=== PATIENT | female | born 1945 | race Caucasian/White ===

== ENCOUNTER 2017-03-23 09:41 | Outpatient (CLI) | payer MEDICARE ==
--- NOTE | ~2017-03-23 | HEMODYNAMI ---
PATIENT:BELLE SANCHEZ MEDICAL RECORD: [id number] : 47 LOCATION:[facility] ADMISSION DATE: 03/23/17 Generatedon:03/23/201713:55 Patient name: BELLE SANCHEZ Patient #: [id number] SSN: : 1945 Date of study: 03/23/2017 Page: Of Hemodynamic Procedure Report Patient Data Patient Demographics Procedure consent was obtained First Name: BELLE Gender: Female Last Name: DANIEL : 1945 Patient #: [id number] Age: 71 year(s) Race: Unknown Additional ID: [id number] Contact details [address]: [address] [place] [address] State: [place] City: [place] Zip code: [address] Past Medical History Allergies Allergen Reaction Date Comments Reported Codeine 03/23/2017 Admission Admission Data Admission Date: 03/23/2017 Admission Time: 9:41 Lab Results Lab Result Date: 03/23/2017 Lab Result Time: 0:00 Biochemistry Name Units Result Min Max BUN mg/dl 16 --(---*)-- 7 18 Creatinine mg/dl 1 --(--*-)-- 0.6 1.3 CBC Name Units Result Min Max Hemoglobin g/dl 12.4 *-(----)-- 13.5 17.5 Procedure Procedure Types Cath Procedure Diagnostic Procedure [facility] w/Coronaries PCI Procedure Coronary Stent Initial Procedure Description Procedure Date Procedure Date: 03/23/2017 Procedure Start Time: 13:40 Procedure End Time: 13:54 Procedure Staff Name Function Cirilo Flores MD Performing Physician Gem Gillis RT Scrub Joey Lamb RT Monitor Irene Au RN Nurse Procedure Data Cath Procedure Fluoroscopy Diagnostic fluoroscopy Total fluoroscopy Time: 1.9 time: 1.9 min min Diagnostic fluoroscopy Total fluoroscopy dose: 360 dose: 360 mGy mGy Contrast Material Contrast Material Type Amount (ml) Isovue 300 57 Entry Location Entry Primary Successful Side Size Upsize Upsize Entry Closure [place]oa ccessful Closure Location (Fr) 1 (Fr) 2 (Fr) Remarks Device Remarks Radial Right 6 Fr Mechanical artery Short Compression Estimated blood loss: 10 ml Diagnostic catheters Device Type Used For End Catheter Placement Diagnostic Terumo 5Fr Procedure Atwood 110cm catheter Procedure Medications Medication Administration Route Dosage Oxygen NC 2 l/min Lidocaine 2% added to field 20 Heparin Flush Bag added to field 2 bags (1000units/500ml NS) 0.9% NaCl I.V. 100 ml/hr Zofran I.V. 4 mg Versed I.V. 1 mg Fentanyl I.V. 50 mcg Radial Cocktail I.A. 1 syringe (Verapomil 2mg/Nitro 400mcg/Heparin 1500units) Versed I.V. 1 mg Fentanyl I.V. 50 mcg Heparin Bolus I.V. 4000 units Integrilin (Bolus I.V. 7.3 ml 2mg/ml) Plavix P.O. 600 mg Hemodynamics Rest HGB: 12.4 (g/dl) Heart Rate: 71 (bpm) Pressure Samples Time Site Value (mmHg) Purpose Heart Use Rate(bpm) 13:44 LV 134/8,12 Snapshot 99 Snapshots Pre Cath Intra NCS Post Cath Vital Signs Time Heart Resp SPO2 NIBP (mmHg) Rhythm Pain Sedation Rate (ipm) (%) Status Level (bpm) 13:17:45 87 15 99 167/90(130) NSR 0 (11) 10(A) , No pain 13:22:54 71 16 100 170/90(130) NSR 0 (11) 10(A) , No pain 13:28:03 72 16 100 152/101(137) NSR 0 (11) 10(A) , No pain 13:32:22 78 15 100 157/98(136) NSR 0 (11) 10(A) , No pain 13:36:44 78 13 100 160/95(141) NSR 0 (11) 10(A) , No pain 13:41:47 76 16 99 162/89(131) NSR 0 (11) 10(A) , No pain 13:45:53 106 15 95 127/90(110) NSR 0 (11) 9(A) , No pain 13:50:03 101 16 94 136/94(113) NSR 0 (11) 10(A) , No pain 13:54:16 96 18 96 146/81(125) NSR 0 (11) 10(A) , No pain Medications Time Medication Route Dose Verified Delivered Reason Not es Effectiveness by by 13:36:52 Oxygen NC 2 l/min Cirilo Kerr used for Sandra Flores MD procedure 13:36:59 Lidocaine 2% added 20ml Cirilo Kerr for local to vial Sandra Flores MD anesthetic field 13:37:06 Heparin Flush added 2 bags Cirilo Kerr used for Bag to Sandra Flores MD procedure (1000units/500ml field NS) 13:37:15 0.9% NaCl I.V. 100ml/hr Cirilo Kerr Per physician Sandra Flores MD 13:37:23 Zofran I.V. 4 mg Cirilo Kerr Per physician Sandra Flores MD 13:42:06 Versed I.V. 1 mg Cirilo Kerr for sedation Sandra Flores MD 13:42:12 Fentanyl I.V. 50 mcg Cirilo Kerr for sedation Sandra Flores MD 13:44:17 Radial Cocktail I.A. 1 Cirilo Kerr for (Verapomil syringe Sandra Flores MD vasodilation 2mg/Nitro 400mcg/Heparin 1500units) 13:44:25 Versed I.V. 1 mg Cirilo Bonilla for sedation Sandra Au RN 13:44:30 Fentanyl I.V. 50 mcg Cirilo Bonilla for sedation Sandra Au RN 13:46:37 Heparin Bolus I.V. 4000 Cirilo Bonilla for eli ified units Sandra Au RN anticoagulation with dr flores 13:48:07 Integrilin I.V. 7.3 ml Cirilo Bonilla for was jaclyn (Bolus 2mg/ml) Sandra Au RN antiplatelet 2.7 ml therapy of vial 13:53:07 Plavix P.O. 600 mg Cirilo Bonilla for Sandra Au RN antiplatelet therapy Procedure Log Time Note 12:53:34 Gem Counts RT(R) sent for patient. Start room use. 12:53:35 Time tracking: Regular hours 12:53:40 Plan of Care:Hemodynamics will remain stable., Cardiac rhythm will remain stable., Comfort level will be maintained., Respiratory function will remain adequate., Patient/ family verbilizes understanding of procedure., Procedure tolerated without complication., Recovers from procedure without complications.. 13:16:30 Patient received from ED to CCL 2 Alert and oriented. Tansferred to table in Supine position. 13:16:31 Warm blankets applied, and bruna hugger turned on for patient comfort. 13:16:31 Correct patient and procedure confirmed by team. 13:16:32 Signed procedure consent form obtained from patient. 13:16:33 ECG and BP/O2 sat monitors applied to patient. 13:16:34 Vital chart was started 13:16:35 Full Disclosure recording started 13:22:39 Baseline sample Acquired. 13:22:41 Rhythm: sinus rhythm 13:22:46 H&P Date Dictated: 03/23/2017 ER History on chart.. 13:22:47 Pre-procedure instructions explained to patient. 13:22:48 Pre-op teaching completed and patient verbalized understanding. 13:22:49 Family in waiting room. 13:22:50 Patient NPO since Midnight. 13:23:00 Patient allergic to Codeine 13:23:02 Is the patient allergic to Iodine/contrast media? No. 13:23:03 Is patient on blood thinner?No 13:23:17 Previous problem with sedation/anesthesia? No ? 13:23:19 Snore? Yes 13:23:19 Sleep apnea? No 13:23:20 Deviated septum? No 13:23:21 Opens mouth fully? Yes 13:23:23 Sticks out tongue? Yes 13:23:30 Airway obstruction? No ? 13:23:31 Dentures? No ? 13:23:34 Pre procedure: right dorsailis pedis pulse 2+ Normal; easily identifiable; not easily obliterated 13:23:36 Modified Melvin's test Radial < 7 seconds 13:23:37 Patient pain scale 0/10 ?. 13:23:42 IV patent on arrival in left hand with 0.9% NaCl at [facility]. 13:23:45 Lab results completed and on chart. 13:23:48 Right Radial & Right Groin area was prepped with chlora-prep and draped in sterile fashion 13:28:04 Use device set Radial Dx 13:28:05 Acist Syringe opened to sterile field. 13:28:06 Medline Cath Pack opened to sterile field. 13:28:07 Bag Decanter opened to sterile field. 13:28:08 Terumo 6Fr Slender Glidesheath opened to sterile field. 13:28:09 St Niko 260cm J .035 wire opened to sterile field. 13:28:09 Acist Hand Control opened to sterile field. 13:28:10 Acist Manifold opened to sterile field. 13:28:10 Tegaderm 4 x 4 opened to sterile field. 13:28:11 MBrace Wrist Support opened to sterile field. 13:28:34 Patient diabetic? No. 13:28:39 Patient not . Patient is over age 55. 13:34:58 Lab Result : Creatinine 1 mg/dl 13:34:58 Lab Result : BUN 16 mg/dl 13:34:58 Lab Result : Hemoglobin 12.4 g/dl 13:36:52 Oxygen 2 l/min NC was administered by Cirilo Flores MD; used for procedure; 13:36:59 Lidocaine 2% 20ml vial added to field was administered by Cirilo Flores MD; for local anesthetic; 13:37:06 Heparin Flush Bag (1000units/500ml NS) 2 bags added to field was administered by Cirilo Flores MD; used for procedure; 13:37:15 0.9% NaCl 100ml/hr I.V. was administered by Cirilo Flores MD; Per physician; 13:37:23 Zofran 4 mg I.V. was administered by Cirilo Flores MD; Per physician; 13:37:58 Alarms reviewed by R. N. 13:37:58 Sharps counted by scrub and verified by R.N. 13:38:30 Physician arrived 13:38:30 --------ALL STOP TIME OUT------ 13:38:31 Final Timeout: patient, procedure, and site verified with staff and physician. All members of the team are in agreement. 13:38:38 Right Radial & Right Groin site verified by team. 13:38:47 Physical assessment completed. ASA score P 2 - A patient with mild systemic disease as per Cirilo Flores MD. 13:38:51 Sedation plan: IV Moderate Sedation Versed, Fentanyl 13:40:29 Procedure started. 13:40:39 Local anesthetic to right radial artery with Lidocaine 2% by Cirilo Flores MD.INITIAL ACCESS ONLY 13:40:54 Zero performed for pressure channel P1 13:41:49 A 6 Fr Short sheath was inserted into the Right Radial artery 13:42:06 Versed 1 mg I.V. was administered by Cirilo Flores MD; for sedation; 13:42:12 Fentanyl 50 mcg I.V. was administered by Cirilo Flores MD; for sedation; 13:42:51 A Diagnostic Terumo 5Fr Atwood 110cm catheter was advanced over the wire and used for Procedure. 13:44:14 LV hemodynamics recorded. 13:44:16 LV gram done using ARVIZU 13:44:17 Radial Cocktail (Verapomil 2mg/Nitro 400mcg/Heparin 1500units) 1 syringe I.A. was administered by Cirilo Flores MD; for vasodilation; 13:44:25 Versed 1 mg I.V. was administered by Irene Au RN; for sedation; 13:44:28 EF : 50 % 13:44:30 Fentanyl 50 mcg I.V. was administered by Irene Au RN; for sedation; 13:44:35 LCA angiography performed. 13:45:02 RCA angiography performed. 13:45:15 Catheter removed. 13:45:17 Proceeding to intervention. 13:45:40 Wordeo BasixCompak Inflation Kit opened to sterile field. 13:45:41 Arcos Whisper J 300cm 0.014 guide wire opened to sterile field. 13:46:37 Heparin Bolus 4000 units I.V. was administered by Irene Au RN; for anticoagulation; verified with dr flores 13:46:47 Cordis 6FR XBLAD 3.5 guide catheter opened to sterile field. 13:47:03 6 Fr xblad 3.5 guide catheter was inserted over the wire 13:47:36 whisper wire advanced. 13:47:48 Wire advanced across lesion. 13:48:07 Integrilin (Bolus 2mg/ml) 7.3 ml I.V. was administered by Irene Au RN; for antiplatelet therapy; wasted 2.7 ml of vial 13:48:17 Inflation Number: 1 A Medtronic Integrity 3.5 X 12 stent was prepped and advanced across the Undefined1. The stent was deployed at 13 QUEENIE for 0:10 (min:sec). 13:48:29 Stent catheter was removed intact over wire. 13:48:30 Wire removed. 13:48:30 Guide catheter removed. 13:48:51 Terumo TR Band Standard opened to sterile field. 13:49:04 Sheath removed intact; hemostasis achieved with Mechanical Compression to the Right Radial artery. 13:49:07 Procedure ended.(Physican Out) 13:51:16 Fluoroscopy time 01.90 minutes. 13:51:23 Fluoroscopy dose: 360 mGy 13:51:23 Flurop Dose total: 360 13:51:31 Contrast amount:Isovue 300 57ml. 13:51:33 Sharps counted by scrub and verified by R.N. 13:51:40 TR band inflated with 10cc of air. 13:51:41 Insertion/operative site no bleeding no hematoma. 13:51:46 Post right radial artery:stable 13:51:50 Post Procedure Pulses reassessed and unchanged 13:51:53 Post-procedure physical assessment completed. ASA score P 2 - A patient with mild systemic disease as per Cirilo Flores MD. 13:52:13 Procedure type changed to Cath procedure, Diagnostic procedure, LHC, LHC w/Coronaries, PCI procedure, Coronary Stent Initial 13:53:07 Plavix 600 mg P.O. was administered by Irene Au RN; for antiplatelet therapy; 13:54:19 Post procedure rhythm: sinus rhythm 13:54:23 Estimated blood loss: 10 ml 13:54:24 Post procedure instruction explained to patient.Patient verbalizes understanding. 13:54:25 Patient needs reinforcement of post procedure teaching. 13:54:33 Procedure and supply charges have been captured, reviewed, submitted and are correct. 13:54:36 Vital chart was stopped 13:54:37 See physician's report for complete and final results. 13:54:42 Report given to Pre/Post Procedure Room. 13:54:50 Patient transfered to Pre/Post Procedure Room with Stretcher. 13:54:53 Procedure ended. 13:54:53 Full Disclosure recording stopped 13:54:57 End room use (Document Last) Intervention Summary Intervention Notes Time ActionType Lesion and Equipment Action# Pressure Duration Attributes Used 13:48:17 Place stent Undefined1 Medtronic 1 13 00:10 Integrity 3.5 X 12 stent Device Usage Item Name Manufacture Quantity Catalog Hospital Part Current Minimal Lot# / Number Charge Number Stock Stock Serial# Code Acist Acist 1 69468 609429 006043 [id number] 20 [employer] Medline Cardinal 1 [id number] 585529 51531 555175 5 Cath Pack Health Bag Microtek 1 2002S 155259 24022 518539 5 DecCopiun Medical Inc. Terumo 6Fr Terumo 1 [id number] 949989 452467 452511 [address] Niko St Niko 1 433270 316377 426276 620462 30 260cm J .035 wire Acist Hand Acist 1 28151 010730 226138 790556 5 Control Medical Systems Inc Acist Acist 1 16616 578862 215152 331350 5 Manifold Medical Systems Inc Tegaderm 4 3M 1 1626W 289750 695967 676585 5 x 4 MBrace Advanced 1 140-0250-00 466052 45968 224383 5 Wrist Vascular Support Dynamics Diagnostic Terumo 1 04-2984 096112 120326 700495 5 Terumo 5Fr Atwood 110cm catheter Merit Merit 1 [id number] 799269 803967 048743 15 BasixCompak Medical Inflation Kit Arcos Arcos 1 [id number] 414362 906270 643114 5 Whisper J Vascular 300cm 0.014 guide wire Cordis 6FR Cardinal 1 [id number] 150838 428997 649627 10 XBLAD 3.5 Health guide catheter Medtronic Medtronic 1 [id number] 832660 192160 2 [id number] Integrity 3.5 X 12 stent Terumo TR Terumo 1 [id number] 830423 428598 254333 40 Band Standard Signature Audit [place] Stage Time Signature Unsigned Intra-Procedure 03/23/2017 Joey Lamb 1:55:31 PM RT(R) (CV) Signatures Monitor : Joey Lamb RT Signature : Date : Time : [facility] [address] [facility] [place] [address]
[2017-03-23 10:07] LABS: BASOPHILS 0.6 % (0-2); EOSINOPHILS 1.4 % (0-7); HEMATOCRIT 38.1 % (36.0-48.0); HEMOGLOBIN 12.4 g/dL (12-16); IMMATURE GRANULOCYTES 0.4 % (0-5); LYMPHOCYTES 21.3 % (15-50); MCH 28.5 pg (26.0-34.0); MCHC 32.5 g/dL (31.0-37.0); MCV 87.6 fL (80.0-100.0); MEAN PLATELET VOLUME 11.1 fL (7.4-10.4); MONOCYTES 10.2 % (2-11); NEUTROPHILS 66.1 % (40-80); PLATELET COUNT 289 10x3/uL (130-400); RBC 4.35 10x6/uL (4.00-5.40); RDW 14.2 % (11.5-14.5)
[2017-03-23 10:31] LABS: ALBUMIN 3.4 g/dL (3.4-5.0); ALKALINE PHOSPHATASE 110 U/L (46-116); ALT (SGPT) 25 U/L (10-68); BILIRUBIN - TOTAL 0.59 mg/dL (0.2-1.3); CALC OSMOLALITY 273 mosm/kg (275-300); CALCIUM 9.5 mg/dL (8.5-10.1); CARBON DIOXIDE 27.5 mmol/L (21.0-32.0); CHLORIDE - SERUM 102 mmol/L (98-107); GLUCOSE 80 mg/dL (74-106); POTASSIUM - SERUM 4.5 mmol/L (3.5-5.1); PROTEIN - SERUM 7.9 g/dL (6.4-8.2); SODIUM 137 mmol/L (136-145); UREA NITROGEN 16 mg/dL (7-18); eGFR NON AFRICAN AMERICAN 58 mL/min (90-120)
[2017-03-23 10:42] LABS: CHOL - HDL RATIO 2.8 ratio (2.3-4.1); CHOLESTEROL, TOTAL 201 mg/dL (0-200); CKMB 0.4 U/L (0.0-3.6); CREATINE KINASE 171 UL (21-215); HDL CHOLESTEROL 72 mg/dL (32-96); LDL CHOLESTEROL 113 mg/dL (0-100); LDL-HDL RATIO 1.6 ratio (1.5-3.5); TRIGLYCERIDE 84 mg/dL (30-200)
[2017-03-23 10:46] LABS: TROPONIN-I < 0.017 ng/mL (0.000-0.060)
--- NOTE | 2017-03-23 14:09 | NUR ---
RECIEVED TO ROOM VIA STRETCHER FROM GINNER HELPER WITH TR BAND TO R/WRIST CDI NO BLEEDING NO HEMATOMA NOTED. REPORTS OF ONE STENT TO THE LAD VSS WITH CHEST PAIN DENIED FAMILY AT SIDE
[2017-03-23] MEDS ORDERED: LISINOPRIL10 MG PO (14:15)
[2017-03-23] MEDS ORDERED: PAMELOR 25 MG C25 MG PO (14:16)
[2017-03-23] MEDS ORDERED: ZANAFLEX4 MG PO (14:17)
[2017-03-23] MEDS ORDERED: BUTRANS1 EAC1 TRANSDERM (14:18)
[2017-03-23] MEDS ORDERED: ULTRAM50 MG PO (14:18)
[2017-03-23] MEDS ORDERED: PLAVIX75 MG PO (14:21)
[2017-03-23] MEDS ORDERED: BAYER CHEWABLE81 MG PO (14:21)
--- NOTE | 2017-03-23 14:45 | NUR ---
PATIENT COMPLAINS OF A HEADACH DR CHANCE NOTIFIED WITH ORDERS FOR DEMEROL 50 X 1 MEDICATION ORDERED AND GIVEN DIRECTED. PATIENT SITTING WITH HOB UP 45 DEGREES EATING SANDWICH AND SODA FAMILY AT SIDE
--- NOTE | 2017-03-23 15:19 | NUR ---
VSS WITH CHEST PAIN DENIED TR BAND REMAINS INTACT TO R/WRIST CDI
--- NOTE | 2017-03-23 15:54 | NUR ---
TR BAND REMAINS CDI NO BLEEDING NO HEMATOMA NOTED. CHEST PAIN IS DENIED. FAMILY AT BEDSIDE
--- NOTE | 2017-03-23 16:44 | NUR ---
NO DISTRESS NOTED VSS WITH PATIENT SITTING HOB UP 30 DEGREES. CHEST PAIN IS DENIED. TR BAND REMAINS TO R/WRIST CDI NO BLEEDING NO HEMATOMA NOTED.
--- NOTE | 2017-03-23 17:00 | NUR ---
1700 4 CC AIR REMOVED FROM TR BAND WITH NO BLEEDING NO HEMATOMA NOTED. VERBAL AND WRITTEN DISCHARGE GONE OVER WITH PATIENT AND BOTH VERBALIZED UNDERSTANDING.
--- NOTE | 2017-03-23 17:15 | NUR ---
3 CC AIR REMOVED FROM TR BAND NO BLEEDING NOTED
--- NOTE | 2017-03-23 17:20 | NUR ---
4 CC AIR REMOVED FROM TR BAND WITH NO BLEEDING NOTED. PIV REMOVED WITH DRESSING APPLIED. PATIENT DENIED CHEST PAIN UP TO GET DRESSED FOR DISCHARGE HOME
--- NOTE | 2017-03-23 17:30 | NUR ---
REMAINING AIR REMOVED FROM TR BAND, DRESSING TO SITE. DISCHARGE INSTRUCTIONS GIVEN, VERBALIZED UNDERSTANDING.
--- NOTE | 2017-03-23 17:40 | NUR ---
TAKEN OUT VIA WHEELCHAIR BY CATH HIP HOP ARTIST. LEFT FACILITY WITH FAMILY MEMBER AND ALL PERSONAL BELONGINGS.
--- NOTE | 2017-04-06 16:56 | OP ---
PATIENT NAME: BELLE SANCHEZ MEDICAL RECORD: [id number] :47 LOCATION:D.CAT ADMISSION DATE: SURGEON: SHAYY CHANCE MD DATE OF OPERATION: 03/23/2017 PROCEDURES: 1. PTCA stent to LAD. 2. Left heart catheterization. 3. Selective coronary angiography. 4. Left ventriculogram. INDICATION: Chest pain compatible with angina. PROCEDURE IN DETAIL: After informed consent was obtained and after detailed explanation of risks, benefits as well as alternative therapies, the patient elected to proceed with angiogram and angioplasty. The right radial area was prepped and draped in normal sterile fashion. The right radial artery was cannulated via modified Seldinger technique with placement of 6-Andorran sheath. All catheters exchanged through this sheath. FINDINGS: The left ventriculogram was performed in standard 30-degree ARVIZU view, reveals good cardiac wall motion throughout all segments. Overall ejection fraction 50%. SELECTIVE CORONARY ANGIOGRAPHY: 1. Left main is with no significant angiographic disease. 2. Left anterior descending has a 75% stenosis in the mid vessel. 3. Left circumflex has moderate irregularities, but no flow-limiting stenosis. 4. Right coronary has moderate irregularities, but no flow-limiting stenosis. PTCA STENT OF THE LAD: The stent used is a 3.5 x 12 mm Integrity. Result was 0% residual stenosis. OVERALL IMPRESSION: Successful percutaneous transluminal coronary angioplasty stent of the left anterior descending going from 75% initial stenosis to 0% residual stenosis. TRANSINT:[id number] Voice Confirmation ID: [id number] DOCUMENT ID: [id number] SHAYY CHANCE MD at 1656 CC: [id number] DICTATION DATE: 03/23/17 1401 BOARD HAMMER OPERATOR: 03/23/17 1500 DEP CLI 03/23/17 [place] [id number]
--- NOTE | 2017-04-06 16:56 | CN ---
PATIENT NAME:BELLE MONTES DE OCA MEDICAL RECORD: [id number] : 47 LOCATION:D.CAT ADMIT DATE: ACCOUNT: [id number] CONSULTING PHYSICIAN: SHAYY CHANCE MD REFERRING PHYSICIAN: SHAYY CHANCE MD DATE OF CONSULTATION: 03/23/2017 ADMITTING DIAGNOSIS: Unstable angina. HISTORY OF PRESENT ILLNESS: Mrs. Montes De Oca was seen in our office with increasing episodes of chest pain, chest discomfort set for nuclear stress testing. She has continued to have episodes of classic anginal chest discomfort with radiation to her jaw and neck. She now presents to the Emergency Room. She is pain free after sublingual nitros. Troponin is normal, but she continues to have the episodes of classic anginal chest pain. PHYSICAL EXAMINATION: GENERAL APPEARANCE: Well-nourished, well-developed, appears stated age. Level of distress, comfortable. PSYCHIATRIC: Mental status, alert, normal affect. Orientation, oriented to time, place and person. EYES: Lids and conjunctiva, noninjected. No discharge, no pallor. ENT: Lips, teeth, gums, normal dentition. Oropharynx, no cyanosis, no pallor. NECK: Carotid arteries, bilateral normal upstroke, no bruits, no thrills. JUGULAR VEINS: No jugular venous pressure or distention. CERVICAL LYMPH NODES: Nontender, nonenlarged. THYROID: Not enlarged. Nontender. No nodules. LUNGS: Respiratory effort, unlabored. CHEST: Normal curvature. No thoracic deformity. No chest wall tenderness. Percussion, resonant. Auscultation, clear. No wheezes, no rales, no rhonchi. CARDIOVASCULAR: Precordial exam, nondisplaced. No heaves or pericardial thrills. Rate and rhythm, regular. Heart sounds, normal S1, normal S2. No S3, no gallop, no rub. Systolic murmur, not heard. Diastolic murmur, not heard. EXTREMITIES: No cyanosis, no edema. Peripheral pulses, full and equal in all extremities, except as noted. No bruits appreciated. ABDOMEN: Soft, nondistended. Normal aorta. No bruit. Nontender. No masses. Liver, nontender, no hepatomegaly. Spleen, nontender, no splenomegaly. MUSCULOSKELETAL: No joint tenderness. No joint swelling. No erythema. NEUROLOGICAL: Normal gait, normal strength, normal tone. SKIN: Warm and dry. REVIEW OF SYSTEMS: The patient reports easy bruising but reports no swollen glands. The patient reports no fever, no night sweats, no significant weight gain, no significant weight loss. No significant exercise tolerance. The patient reports no dry eyes, no irritation, no vision change. Patient reports no difficulty hearing and no ear pain. Patient reports no frequent nose bleeds or nose and sinus problems. Patient reports on arm pain on exertion. No shortness of breath while lying down. No history of heart murmur. Patient reports no cough, no wheezing or coughing up blood. Patient reports no abdominal pain, no vomiting. Normal appetite. No diarrhea and not vomiting blood. No nausea and no constipation. Patient reports no incontinence. No difficulty urinating. No hematuria. No increased frequency. Patient reports no muscle aches. No weakness, no arthralgias, no back pain. No swelling of the extremities. Patient reports no abnormal mole, no jaundice, no rashes. Reports no loss of consciousness. No weakness and no numbness. No seizures, dizziness, CONSULT REPORT [id number] MONTES DE OCA,BELLE or headaches. The patient reports no depression, no sleep disturbance, feeling safe in a relationship and no alcohol abuse. Patient reports on fatigue. Reports no runny nose or sinus pressure. No itching, no hives, and no frequent sneezing. OVERALL IMPRESSION: Increasing episodes of chest pain compatible with angina. We will proceed with coronary angiography. Further care depends upon findings of the angiography. TRANSINT:[id number] Voice Confirmation ID: [id number] DOCUMENT ID: [id number] SHAYY CHANCE MD at 1656 CC: [id number] DICTATION DATE: 03/23/17 1400 BOBBIN DUMPER: 03/23/17 1458 DEP CLI 03/23/17 [place] [id number] [place] [id number]
== END 2017-03-23 17:40 | disposition home or self-care (01) ==
LOC: D.CATH 09:41 → D.ER 09:41 → EDSTATUS 11:12 → D.CATH 17:40
PROVIDERS: Emergency Medicine
DX: I20.0 Unstable angina (principal); R07.9 Chest pain, unspecified; R68.84 Jaw pain; Z01.812 Encounter for preprocedural laboratory examination

== ENCOUNTER → 2018-03-25 17:33 | Outpatient (CLI) | payer MEDICARE ==
[~2018-03-25 17:33] MED LIST: BAYER CHEWABLE81 MG PO; BUTRANS1 EAC1 TRANSDERM; LISINOPRIL10 MG PO; PAMELOR 25 MG C25 MG PO; PLAVIX75 MG PO; ULTRAM50 MG PO; ZANAFLEX4 MG PO
== END | disposition home or self-care (01) ==
LOC: D.LABREF 17:33
DX: N39.0 Urinary tract infection, site not specified (principal)

== ENCOUNTER → 2018-04-22 16:16 | Outpatient (CLI) | payer MEDICARE | END | disposition home or self-care (01) | LOC: D.LABREF 16:16 | DX: D72.829 Elevated white blood cell count, unspecified (principal); R31.9 Hematuria, unspecified ==

== ENCOUNTER → 2018-06-17 17:17 | Outpatient (CLI) | payer MEDICARE | END | disposition home or self-care (01) | LOC: D.LABREF 17:17 | DX: D72.829 Elevated white blood cell count, unspecified (principal) ==

== ENCOUNTER → 2018-07-01 16:54 | Outpatient (CLI) | payer MEDICARE ==
[~2018-07-01 16:54] MED LIST changes: +NORCO 10-325 TA1 TAB PO; +ROBAXIN500 MG PO
== END | disposition home or self-care (01) ==
LOC: D.LABREF 16:54
DX: D72.829 Elevated white blood cell count, unspecified (principal)

== ENCOUNTER 2018-07-01 18:06 | Emergency (ER) | payer MEDICARE ==
[~2018-07-01] VITALS: Ht 172.7 cm; Wt 86.4 kg
[~2018-07-01 18:06] MED LIST changes: -NORCO 10-325 TA1 TAB PO; -ROBAXIN500 MG PO
[2018-07-01 18:17] VITALS: Ht 172.7 cm; Wt 86.4 kg
[2018-07-01] MEDS ORDERED: NORCO 10-325 TA1 TAB PO (20:33)
[2018-07-01] MEDS ORDERED: ROBAXIN500 MG PO (20:33)
[2018-07-01 20:44] VITALS: BP 027/75
== END 2018-07-01 20:45 | disposition home or self-care (01) ==
LOC: D.ER 18:06
DX: S20.211A Contusion of right front wall of thorax, initial encounter (principal); V43.52XA Car driver injured in collision with other type car in traffic accident, initial encounter; Y93.89 Activity, other specified; Y92.410 Unspecified street and highway as the place of occurrence of the external cause; S16.1XXA Strain of muscle, fascia and tendon at neck level, initial encounter

== ENCOUNTER → 2018-07-18 14:10 | Outpatient (CLI) | payer MEDICARE ==
[2018-07-01 18:17] VITALS: BMI 28.9
[~2018-07-18 14:10] MED LIST changes: +NORCO 10-325 TA1 TAB PO; +ROBAXIN500 MG PO
== END | disposition home or self-care (01) ==
LOC: D.CT 14:10
DX: S20.219D Contusion of unspecified front wall of thorax, subsequent encounter (principal); X58.XXXD Exposure to other specified factors, subsequent encounter

== ENCOUNTER → 2018-09-26 12:36 | Outpatient (CLI) | payer MEDICARE ==
[2018-07-01 18:17] VITALS: BMI 28.9
== END | disposition home or self-care (01) ==
LOC: D.RAD 12:36
DX: M54.5 Low back pain (principal)

== ENCOUNTER → 2018-10-15 08:59 | Outpatient (CLI) | payer MEDICARE ==
[2018-07-01 18:17] VITALS: BMI 28.9
--- NOTE | 2018-10-18 16:42 | ST ---
PATIENT:BELLE SANCHEZ MEDICAL RECORD: [id number] SEX: F LOCATION:[facility] ORDER #: ADMISSION DATE: 10/15/18 AGE OF PATIENT: 73 REFERRING PHYSICIAN: INTERPRETING PHYSICIAN: SHAYY CHANCE MD DATE OF SERVICE: 10/15/2018 Nuclear Stress Test INDICATIONS: Angina. She was exercised on standard Lexiscan protocol 25 mCi of sestamibi injected at peak stress and 9 mCi previously for rest images. FINDINGS: Gated SPECT reveals a preserved ejection fraction at 60% with good wall motioning and thickening and brightening throughout all segments. SPECT IMAGING: Cardiolite was used as myocardial fusion agent. There are definite reversible changes anteriorly and laterally. This includes the basal, mid, apical, and anterior segments; apical lateral, mid lateral, basal lateral segments. Degree of reversibility is moderate. The amount of myocardium involved is large. OVERALL IMPRESSION: This is significantly abnormal nuclear stress test, large area of inducible ischemia anteriorly and laterally suggestive of multivessel coronary artery disease, we will proceed with coronary angiography as followup study. TRANSINT:[id number] Voice Confirmation ID: [id number] DOCUMENT ID: [id number] SHAYY CHANCE MD at 1642 CC: RHEA LEONARDO MD [id number] DICTATION DATE: 10/16/18 1536 ENVIRONMENTAL MANAGER: 10/17/18 0425 DEP CLI 10/15/[address] [id number]
== END | disposition home or self-care (01) ==
LOC: D.HCCARDIO 08:59
PROVIDERS: ATTEND Internal Medicine Interventional Cardiology
DX: I20.9 Angina pectoris, unspecified (principal)

== ENCOUNTER 2018-10-28 08:28 | Outpatient (CLI) | payer MEDICARE ==
[~2018-10-28] VITALS: Ht 172.7 cm; Wt 93.2 kg
--- NOTE | ~2018-10-28 | OP ---
PATIENT NAME: BELLE SANCHEZ MEDICAL RECORD: [id number] :47 LOCATION:D.CAT ADMISSION DATE: SURGEON: SHAYY CHANCE MD DATE OF OPERATION: 10/28/2018 PROCEDURE: 1. Left heart catheterization. 2. Left ventriculogram. INDICATION: Angina, abnormal nuclear stress test. PROCEDURE IN DETAIL: After informed consent was obtained and after a detailed description of the risks, benefits as well as alternative therapies, the patient elected to proceed with angiogram and heart catheterization. The right radial area was prepped and draped in normal sterile fashion. Right radial artery was cannulated via modified Seldinger technique with placement of 5-Spanish sheath. All catheters exchanged through this sheath. FINDINGS: Left ventriculogram was performed in standard 30-degree ARVIZU view, reveals good cardiac wall motion, ejection fraction is 60%. SELECTIVE CORONARY ANGIOGRAPHY: 1. Left main is with no significant angiographic disease. 2. Left anterior descending has moderate irregularities, but no flow-limiting stenosis. 3. The left circumflex is small, nondominant with no significant disease. 4. Right coronary artery is large, dominant with no significant disease. OVERALL IMPRESSION: Minimal coronary artery disease is present. No flow-limiting stenosis. Nuclear stress test was false positive. Center medical management on treatment of noncardiac chest pain. TRANSINT:[id number] Voice Confirmation ID: [id number] DOCUMENT ID: [id number] SHAYY CHANCE MD CC: [id number] DICTATION DATE: 10/28/18 1048 LICENSED MASS REAL ESTATE APPRAISER: 10/28/18 1140 DEP CLI 10/28/18 [place] [id number] [place] [address]
--- NOTE | ~2018-10-28 | HEMODYNAMI ---
PATIENT:BELLE SANCHEZ MEDICAL RECORD: [id number] : 47 LOCATION:[facility] ADMISSION DATE: 10/28/18 Generatedon:10/28/201810:49 Patient name: BELLE SANCHEZ Patient #: [id number] SSN: : 1945 Date of study: 10/28/2018 Page: Of Hemodynamic Procedure Report Patient Data Patient Demographics Procedure consent was obtained First Name: BELLE Gender: Female Last Name: DANIEL : 1945 [facility] Initial: ZEE Age: 73 year(s) Patient #: [id number] Race: Unknown Additional ID: [id number] Contact details [address]: [address] [place] [address] State: [place] City: [place] Zip code: [address] Past Medical History Allergies Allergen Reaction Date Comments Reported Codeine 03/23/2017 Codeine 10/28/2018 Admission Admission Data Admission Date: 10/28/2018 Admission Time: 8:28 Procedure Procedure Types Cath Procedure Diagnostic Procedure LHC LHC w/Coronaries Procedure Description Procedure Date Procedure Date: 10/28/2018 Procedure Start Time: 10:37 Procedure End Time: 10:46 Procedure Staff Name Function Saeed Douglass RT Scrub Irene Au RN Nurse Cirilo Flores MD Performing Physician Gem Gillis RT Monitor Procedure Data Cath Procedure Fluoroscopy Diagnostic fluoroscopy Total fluoroscopy Time: 0.9 time: 0.9 min min Diagnostic fluoroscopy Total fluoroscopy dose: 151 dose: 151 mGy mGy Contrast Material Contrast Material Type Amount (ml) Isovue 300 46 Entry Location Entry Primary Successful Side Size Upsize Upsize Entry Closure [place] ccessful Closure Location (Fr) 1 (Fr) 2 (Fr) Remarks Device Remarks Radial Right 6 Fr Mechanical artery Short Compression Estimated blood loss: 5 ml Diagnostic catheters Device Type Used For End Catheter Placement DIAGNOSTIC Hatley 110cm 5 LV Angiography Fr catheter ([id number]) DIAGNOSTIC Hatley 110cm 5 Left Coronary Fr catheter ([id number]) Angiography DIAGNOSTIC Hatley 110cm 5 Right Coronary Fr catheter ([id number]) Angiography Procedure Complications No complications Procedure Medications Medication Administration Route Dosage Oxygen etCO2 Nasal cannula 2 l/min Lidocaine 2% added to field 20 Heparin Flush Bag added to field 2 bags (1000units/500ml NS) 0.9% NaCl I.V. 100 ml/hr Versed I.V. 1 mg Fentanyl I.V. 50 mcg Radial Cocktail I.A. 1 syringe (Verapamil 2mg/Nitro 400mcg/Heparin 1500units) Versed I.V. 1 mg Fentanyl I.V. 50 mcg Versed I.V. 0.5 mg Hemodynamics Rest Heart Rate: 61 (bpm) Snapshots Pre Cath Intra NCS Post Cath Vital Signs Time Heart Resp SPO2 etCO2 NIBP (mmHg) Rhythm Pain Sedation Rate (ipm) (%) (mmHg) Status Level (bpm) 10:25:41 66 17 96 0 177/100(157) NSR 0 (11) 10(A) , No pain 10:29:54 59 15 95 0 165/90(145) NSR 0 (11) 10(A) , No pain 10:34:07 64 13 97 0 139/84(119) NSR 0 (11) 10(A) , No pain 10:39:04 61 13 98 0 141/78(122) NSR 0 (11) 9(A) , No pain 10:43:18 66 14 94 35.2 122/71(105) NSR 0 (11) 9(A) , No pain 10:47:22 64 14 94 35.2 114/70(92) NSR 0 (11) 10(A) , No pain Medications Time Medication Route Dose Verified Delivered Reason Notes Effectiveness by by 10:27:19 Oxygen etCO2 2 l/min Cirilo Bonilla used for Nasal Sandra Au RN procedure cannula 10:27:26 Lidocaine 2% added 20ml Cirilo Kerr for local to vial Sandra Flores MD anesthetic field 10:27:51 Heparin Flush added 2 bags Cirilo Kerr used for Bag to Sandra Flores MD procedure (1000units/500ml field NS) 10:28:20 0.9% NaCl I.V. 100 Cirilo Buffie Per ml/hr Sandra Au RN physician 10:37:07 Fentanyl I.V. 50 mcg Cirilo Bonilla for sedation Sandra Au RN 10:37:59 Versed I.V. 1 mg Cirilo Bonilla for sedation Sandra Au RN 10:40:37 Radial Cocktail I.A. 1 Cirilo Kerr for (Verapamil syringe Sandra Flores MD vasodilation 2mg/Nitro 400mcg/Hepari 10:40:51 Versed I.V. 1 mg Cirilo Bonilla for sedation Sandra Au RN 10:40:55 Fentanyl I.V. 50 mcg Cirilo Bonilla for sedation Sandra Au RN 10:43:48 Versed I.V. 0.5 mg Cirilo Bonilla for sedation Sandra Au RN Procedure Log Time Note 9:55:06 Irene Au RN sent for patient. Start room use. 10:11:07 Time tracking: Regular hours (M-F 7:00 - 5:00) 10:11:10 Plan of Care:Hemodynamics will remain stable., Cardiac rhythm will remain stable., Comfort level will be maintained., Respiratory function will remain adequate., Patient/ family verbilizes understanding of procedure., Procedure tolerated without complication., Recovers from procedure without complications.. 10:17:33 Patient received from Pre/Post Procedure Room to CCL 3 Alert and oriented. Tansferred to table in Supine position. 10:17:34 Correct patient and procedure confirmed by team. 10:17:34 Warm blankets applied, and bruna hugger turned on for patient comfort. 10:17:35 Signed procedure consent form obtained from patient. 10:17:36 ECG and BP/O2 sat monitors applied to patient. 10:17:38 Full Disclosure recording started 10:23:42 Vital chart was started 10:27:19 Oxygen 2 l/min etCO2 Nasal cannula was administered by Irene Au RN; used for procedure; 10:27:26 Lidocaine 2% 20ml vial added to field was administered by Cirilo Flores MD; for local anesthetic; 10:27:51 Heparin Flush Bag (1000units/500ml NS) 2 bags added to field was administered by Cirilo Flores MD; used for procedure; 10:28:20 0.9% NaCl 100 ml/hr I.V. was administered by Irene Au RN; Per physician; 10:31:07 Rhythm: sinus bradycardia 10:31:10 Baseline sample Acquired. 10:31:28 H&P Date Dictated: 10/03/2018 Within 30 days and on chart., H&P Addendum completed by physician on day of procedure. (MUST COMPLETE FOR ALL OUTPATIENTS). 10:31:30 Pre-op teaching completed and patient verbalized understanding. 10:31:30 Pre-procedure instructions explained to patient. 10:31:33 Family in patients room. 10:31:34 Patient NPO since Midnight. 10:31:44 Patient allergic to Codeine 10:31:46 Is the patient allergic to Iodine/contrast media? No. 10:31:48 Is patient on blood thinner?No 10:31:49 Patient diabetic? No. 10:31:52 Previous problem with sedation/anesthesia? No ? 10:31:53 Snore? Yes 10:31:54 Sleep apnea? No 10:31:55 Deviated septum? No 10:31:56 Opens mouth fully? Yes 10:31:57 Sticks out tongue? Yes 10:31:58 Airway obstruction? No ? 10:32:00 Dentures? No ? 10:32:02 Pre procedure: right dorsailis pedis pulse 2+ Normal; easily identifiable; not easily obliterated 10:32:03 Modified Melvin's test Ulnar < 7 seconds 10:32:05 Patient pain scale 0/10 ?. 10:32:10 IV patent on arrival in left forearm with 0.9% NaCl at O. 10:32:12 Lab results completed and on chart. 10:32:16 Right Radial & Right Groin area was prepped with chlora-prep and draped in sterile fashion 10:32:17 Sharps counted by scrub and verified by R.N. 10:32:17 Alarms reviewed by R. N. 10:32:23 Use device set Radial Dx or PCI 10:32:24 Medline Cath Pack ([id number]) opened to sterile field. 10:32:24 ACIST Syringe (51663) opened to sterile field. 10:32:25 DIAGNOSTIC WIRE .035 260cm J wire (729469) opened to sterile field. 10:32:25 Bag Decanter (2002S) opened to sterile field. 10:32:26 ACIST Manifold (02072) opened to sterile field. 10:32:26 ACIST Hand Control (69593) opened to sterile field. 10:32:27 Tegaderm 4 x 4 (1626W) opened to sterile field. 10:32:28 MBrace Wrist Support ([id number]) opened to sterile field. 10:32:29 SHEATH 6FR Slender (26-2074) opened to sterile field. 10:35:19 Physician paged 10:36:01 Final Timeout: patient, procedure, and site verified with staff and physician. All members of the team are in agreement. 10:36:04 Right Radial site verified by team. 10:36:09 Maximum allowable Isovue 370 dose 300ml. Physician notified. (300ml for normal creatinines. For patients with creatinine of 1.7 or higher multiply weight(kg) x 5 divided by creatinine.) 10:36:13 Fire Safety Assessment: A--An alcohol-based skin anteseptic being used preoperatively., C--Open oxygen or nitrous oxide is being used., D--An ESU, laser, or fiber-optic light is being used. 10:36:17 Physical assessment completed. ASA score P 2 - A patient with mild systemic disease as per Cirilo Flores MD. 10:36:19 Sedation plan: IV Moderate Sedation Medication:Versed, Fentanyl 10:36:41 Zero performed for pressure channel P1 10:36:45 Zero performed for pressure channel P1 10:37:07 Fentanyl 50 mcg I.V. was administered by Irene Au RN; for sedation; 10:37:47 Procedure started. 10:37:54 Local anesthetic to right radial artery with Lidocaine 2% by Cirilo Flores MD.INITIAL ACCESS ONLY 10:37:59 Versed 1 mg I.V. was administered by Irene Au RN; for sedation; 10:39:43 A 6 Fr Short sheath was inserted into the Right Radial artery 10:40:33 A DIAGNOSTIC Hatley 110cm 5 Fr catheter ([id number]) was advanced over the wire and used for LV Angiography. 10:40:37 Radial Cocktail (Verapamil 2mg/Nitro 400mcg/Heparin 1500units) 1 syringe I.A. was administered by Cirilo Flores MD; for vasodilation; 10:40:51 Versed 1 mg I.V. was administered by Irene Au RN; for sedation; 10:40:55 Fentanyl 50 mcg I.V. was administered by Irene Au RN; for sedation; 10:41:18 LV gram done using ARVIZU 10:41:20 Injector settings: Ml/sec: 5, Volume: 15, 10:41:29 EF : 60 % 10:42:08 A DIAGNOSTIC Hatley 110cm 5 Fr catheter ([id number]) was advanced over the wire and used for Left Coronary Angiography. 10:43:22 A DIAGNOSTIC Hatley 110cm 5 Fr catheter ([id number]) was advanced over the wire and used for Right Coronary Angiography. 10:43:23 Catheter removed. 10:43:25 TR BAND Standard ([id number]) opened to sterile field. 10:43:34 Sheath removed intact; hemostasis achieved with Mechanical Compression to the Right Radial artery. 10:43:41 Procedure ended.(Physican Out) 10:43:48 Versed 0.5 mg I.V. was administered by Irene Au RN; for sedation; 10:43:51 Fluoroscopy time 00.90 minutes. 10:43:55 Fluoroscopy dose: 151 mGy 10:43:55 Flurop Dose total: 151 10:43:59 Contrast amount:Isovue 300 46ml. 10:44:00 Sharps counted by scrub and verified by R.N. 10:44:02 TR band inflated with 10cc of air. 10:44:04 Insertion/operative site no bleeding no hematoma. 10:44:09 Post right radial artery:stable, clean and dry 10:44:10 Post Procedure Pulses reassessed and unchanged 10:44:13 Post-procedure physical assessment completed. ASA score P 2 - A patient with mild systemic disease as per Cirilo Flores MD. 10:44:15 Post procedure rhythm: unchanged. 10:44:17 Estimated blood loss: 5 ml 10:44:19 Patient needs reinforcement of post procedure teaching. 10:44:19 Post procedure instruction explained to patient.Patient verbalizes understanding. 10:44:25 Procedure Complication : No complications 10:44:27 See physician's report for complete and final results. 10:44:51 Procedure and supply charges have been captured, reviewed, submitted and are correct. 10:46:25 Vital chart was stopped 10:46:28 Report given to Pre/Post Procedure Room. 10:46:31 Patient transfered to Pre/Post Procedure Room with Stretcher. 10:46:40 Full Disclosure recording stopped 10:46:40 Procedure ended. 10:46:43 End room use (Document Last) Device Usage Item Name Manufacture Quantity Catalog Hospital Part Current Minimal Lot# / Number Charge Number Stock Stock Serial# Code ACIST Acist 1 99895 129532 754652 980030 20 Syringe Medical (44100) Systems Inc Medline Medline 1 [id number] 773027 80698 590378 5 Cath Pack ([id number]) Bag Microtek 1 2001S 681191 12585 032134 5 Decanter Medical Inc. (2001S) DIAGNOSTIC St Niko 1 707980 758957 446835 161234 30 WIRE .035 260cm J wire (170879) ACIST Hand Acist 1 12810 856950 064664 302130 5 Control Medical (97249) Systems Inc ACIST Acist 1 41457 013450 611267 555721 5 Manifold Medical (18705) Systems Inc Tegaderm 4 3M 1 1626W 239838 825643 349850 5 x 4 (1626W) MBrace Advanced 1 140-0250-00 370337 13026 707658 5 Wrist Vascular Support Dynamics ([id number]) SHEATH 6FR Terumo 1 [id number] 347392 996714 270887 5 Slender (80-1060) DIAGNOSTIC Terumo 1 40-2893 309667 594627 917672 5 Hatley 110cm 5 Fr catheter (292925) TR BAND Terumo 1 [id number] 290930 559940 823625 40 Standard ([id number]) Signature Audit Rector Stage Time Signature Unsigned Intra-Procedure 10/28/2018 Gem 10:49:43 AM Counts RT(R) Signatures Monitor : Gem Signature : Counts RT Date : Time : [facility] [address] [place] [address]
[2018-10-28] MEDS ORDERED: FLORINEF 0.1 M0.1 MG PO (08:55)
[2018-10-28] MEDS ORDERED: LYRICA100 MG PO (08:56)
[2018-10-28 09:08] VITALS: BP 188/86; Ht 172.7 cm; Wt 93.2 kg
[2018-10-28 09:33] LABS: ANION GAP 11.3 mmol/L (8-16); CALCIUM 8.6 mg/dL (8.5-10.1); CARBON DIOXIDE 27.4 mmol/L (21.0-32.0); POTASSIUM - SERUM 3.7 mmol/L (3.5-5.1)
[2018-10-28 09:55] LABS: BASOPHILS 0.7 % (0-2); EOSINOPHILS 1.8 % (0-7); HEMATOCRIT 38.1 % (36.0-48.0); HEMOGLOBIN 12.5 g/dL (12-16); IMMATURE GRANULOCYTES 0.2 % (0-5); LYMPHOCYTES 29.2 % (15-50); MCH 28.5 pg (26.0-34.0); MCHC 32.8 g/dL (31.0-37.0); MEAN PLATELET VOLUME 11.4 fL (7.4-10.4); MONOCYTES 10.5 % (2-11); NEUTROPHILS 57.6 % (40-80); PLATELET COUNT 244 10x3/uL (130-400); RBC 4.38 10x6/uL (4.00-5.40); RDW 14.5 % (11.5-14.5); WBC 4.5 10x3/uL (4.8-10.8)
[2018-10-28] MEDS ORDERED: ALDACTONE25 MG PO (12:49)
== END 2018-10-28 12:50 | disposition home or self-care (01) ==
LOC: D.CATH 08:28
PROVIDERS: ATTEND Internal Medicine Interventional Cardiology
DX: R94.30 Abnormal result of cardiovascular function study, unspecified (principal); I20.9 Angina pectoris, unspecified

== ENCOUNTER 2019-03-18 12:30 | Outpatient (CLI) | payer MEDICARE ==
[2018-10-28 09:08] VITALS: BMI 31.2
[~2019-03-18 12:30] MED LIST changes: +ALDACTONE25 MG PO; +FLORINEF 0.1 M0.1 MG PO; +LYRICA100 MG PO
== END 2019-03-18 13:00 | disposition home or self-care (01) ==
LOC: D.MAMMO 12:30
PROVIDERS: ATTEND Family Medicine
DX: Z12.31 Encounter for screening mammogram for malignant neoplasm of breast (principal)

== ENCOUNTER 2019-03-31 08:00 | Outpatient (CLI) | payer MEDICARE ==
[2018-10-28 09:08] VITALS: BMI 31.2
== END 2019-03-31 23:59 | disposition home or self-care (01) ==
LOC: D.MAMMO 08:00
PROVIDERS: ATTEND Family Medicine
DX: R92.8 Other abnormal and inconclusive findings on diagnostic imaging of breast (principal)

== ENCOUNTER → 2019-12-18 16:49 | Outpatient (CLI) | payer OTHER ==
[2018-10-28 09:08] VITALS: BMI 31.2
== END ==
LOC: D.MAMMO 11-05 11:00
PROVIDERS: ATTEND Family Medicine
DX: R92.8 Other abnormal and inconclusive findings on diagnostic imaging of breast (principal)